=== PATIENT | male | born 1990 | race Asian ===

== ENCOUNTER → 2018-11-07 | Outpatient (CLI) | payer OTHER ==
[2018-11-07 12:38] LABS: BASOPHIL % 0.8 % (0-2); PLATELET COUNT 212 x10^3mcL (130-400)
[2018-11-07 12:53] LABS: ALBUMIN 4.2 g/dL (3.4-5.0); ALKALINE PHOSPHATASE 78 U/L (46-116); ALT/SGPT 34 U/L (16-63); AST/SGOT 18 U/L (15-37); BILIRUBIN TOTAL 0.44 mg/dL (0.20-1.00); CARBON DIOXIDE 29.6 mmol/L (21-32); CHLORIDE SERUM 108 mmol/L (98-107); CHOLESTEROL 162 mg/dL (<200); CHOLESTEROL/HDL RATIO 4.6; GFR1 > 60 mL/min; GLUCOSE SERUM 92 mg/dL (74-106); HDL CHOLESTEROL 35 mg/dL (40-60); POTASSIUM SERUM 5.4 mmol/L (3.5-5.1); SODIUM SERUM 143 mmol/L (136-145); TOTAL PROTEIN, SERUM 8.2 g/dL (6.4-8.2); TRIGLYCERIDES 81 mg/dL (<150)
[2018-11-07 13:04] LABS: RED CELL DISTRIBUTION WIDTH 15.5 % (11.5-14.5)
[2018-11-07 13:09] LABS: rbc morphology (normal/abnorm) ABNORMAL (NORMAL)
== END | disposition home or self-care (01) ==
LOC: LB 12:12
DX: M54.5 Low back pain (principal)

== ENCOUNTER → 2018-12-08 | Outpatient (CLI) | payer OTHER | END | disposition home or self-care (01) | LOC: RD 09:49 | DX: M54.5 Low back pain (principal) ==

== ENCOUNTER → 2019-01-23 | Outpatient (CLI) | payer OTHER ==
[2019-01-23 12:50] LABS: ALBUMIN 4.1 g/dL (3.4-5.0); ALKALINE PHOSPHATASE 65 U/L (46-116); ALT/SGPT 45 U/L (16-63); AST/SGOT 29 U/L (15-37); BILIRUBIN TOTAL 0.49 mg/dL (0.20-1.00); CALCIUM 9.6 mg/dL (8.5-10.1); CARBON DIOXIDE 26.7 mmol/L (21-32); CHLORIDE SERUM 105 mmol/L (98-107); GFR1 > 60 mL/min; GLUCOSE SERUM 84 mg/dL (74-106); POTASSIUM SERUM 4.9 mmol/L (3.5-5.1); SODIUM SERUM 140 mmol/L (136-145); TOTAL PROTEIN, SERUM 7.7 g/dL (6.4-8.2)
[2019-01-23 12:57] LABS: IRON 66 ug/dL (65-170); TOTAL IRON BINDING CAPACITY 275 ug/dL (250-450)
[2019-01-23 13:40] LABS: PLATELET COUNT 234 x10^3mcL (130-400); RED BLOOD CELLS 6.11 M/mm3 (4.52-5.90)
[2019-01-23 13:43] LABS: RED CELL DISTRIBUTION WIDTH 16.2 % (11.5-14.5)
[2019-01-23 14:39] LABS: BAND NEUTROPHIL 4 % (0-10); BASOPHIL 1 % (0-2); MONOCYTE 7 % (0-7); SEGMENTED NEUTROPHILS 60 % (37-75)
[2019-01-23 14:40] LABS: PLATELET MORPHOLOGY PLATELETS NORMAL
[2019-01-23 14:41] LABS: rbc morphology (normal/abnorm) ABNORMAL (NORMAL)
== END | disposition home or self-care (01) ==
LOC: LB 11:41
DX: D64.9 Anemia, unspecified (principal); E87.5 Hyperkalemia

== ENCOUNTER → 2019-06-13 | Outpatient (CLI) | payer OTHER | END | disposition home or self-care (01) | LOC: US 11:03 | PROC: BV44ZZZ Ultrasonography of Scrotum (ICD-10-PCS; principal; 2019-06-13) | DX: I86.1 Scrotal varices (principal) ==

== ENCOUNTER 2020-02-15 11:18 | Emergency (ER) | payer OTHER ==
[~2020-02-15] VITALS: Ht 182.9 cm; Wt 78.9 kg
[2020-02-15 11:56] VITALS: Ht 182.9 cm; Wt 78.9 kg
[2020-02-15 14:29] VITALS: BP 101/55
== END 2020-02-15 14:29 | disposition home or self-care (01) ==
LOC: ED 11:18
DX: S33.5XXA Sprain of ligaments of lumbar spine, initial encounter (principal); X58.XXXA Exposure to other specified factors, initial encounter; Y93.89 Activity, other specified; Y92.89 Other specified places as the place of occurrence of the external cause; Y99.8 Other external cause status